=== PATIENT | male | born 2005 ===

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

== ENCOUNTER 2023-03-14 11:10 | Outpatient (REF) | payer BC, SELFPAY ==
[2023-03-14 11:31] LABS: MANUAL DIFF FLAG NO
[2023-03-14 11:59] LABS: Basophils Percent Auto 0.4 % (0-2); Eosinophils Absolute Auto 0.2 X10*3/uL (0.0-0.4); Hematocrit 48.8 % (42.0-52.0); Hemoglobin 16.2 g/dl (14.0-18.0); Imm Gran Abs Auto 0.01 X10*3/uL (0.00-0.03); Imm Gran Pct Auto 0.1 % (0.0-0.4); Lymphocytes Absolute Auto 2.5 X10*3/uL (1.2-4.9); Lymphocytes Percent Auto 36.3 % (20-40); Mean Corpuscular HGB Conc 33.2 g/dl (31.0-36.0); Mean Corpuscular Hemoglobin 28.9 pg (27.0-33.0); Mean Corpuscular Volume 87.1 fL (80.0-98.0); Monocytes Absolute Auto 0.6 X10*3/uL (0.1-1.2); Monocytes Percent Auto 8.7 % (2-11); Neutrophils Absolute Auto 3.5 x10*3/uL (2.0-8.3); Neutrophils Percent Auto 51.5 % (45-73); Platelet Count 347 X10*3/uL (160-400); Red Cell Distribution Width 12.8 % (11.0-16.0); White Blood Count 6.8 X10*3/uL (4.8-10.8)
[2023-03-14 12:03] LABS: Appearance Urine Clear; Color Urine Yellow; Glucose Urine UA Negative (Negative); Leukocyte Esterase Urine Negative (Negative); Nitrite Urine Negative (Negative); PH 5.5 (5.0-9.0); Specific Gravity - Urine 1.025 (1.005-1.025); Urine Blood Negative (Negative); Urine Ketones Negative (Negative); Urine Protein Negative (Neg-Trace)
[2023-03-14 12:24] LABS: Alanine Aminotransferase 79 U/L (0-40); Albumin Level 4.2 g/dL (3.5-5.0); Alkaline Phosphatase 69 U/L (39-117); Anion Gap 13 (12-20); Aspartate Amino Transferase 37 U/L (5-37); Bilirubin Total 0.6 mg/dL (0.0-1.0); Blood Urea Nitrogen 12 mg/dL (9-16); Calcium 9.6 mg/dL (8.4-10.2); Carbon Dioxide 27 mmol/L (22-29); Chloride 105 mmol/L (96-108); Cholesterol 228 mg/dL (<200); Estimated Glomerular Filt Rate > 60; Glucose Fasting 96 mg/dL (60-99); HDL Cholesterol 41 mg/dL (>40); LDL Cholesterol Calculated 166 mg/dL (<100); Potassium 4.4 mmol/L (3.3-5.1); Sodium 141 mmol/L (135-145); Total Protein 7.8 g/dL (6.5-8.0); Triglycerides 105 mg/dL (<150)
== END 2023-03-14 11:11 | disposition home or self-care (01) ==
LOC: HO.LNP 11:10
PROVIDERS: Visit Provider Internal Medicine
DX: Z00.00 Encounter for general adult medical examination without abnormal findings (principal); E66.9 Obesity, unspecified; E78.00 Pure hypercholesterolemia, unspecified
CPT/HCPCS: 80053; 80061; 81003; 85025

== ENCOUNTER 2024-03-18 11:57 | Outpatient (REF) | payer BC, SELFPAY ==
[2024-03-18 12:01] LABS: MANUAL DIFF FLAG NO
[2024-03-18 12:31] LABS: Appearance Urine Clear; Color Urine Yellow; Glucose Urine UA Negative (Negative); Leukocyte Esterase Urine Negative (Negative); Nitrite Urine Negative (Negative); PH 5.5 (5.0-9.0); Urine Blood Negative (Negative); Urine Ketones Negative (Negative); Urine Protein Negative (Neg-Trace)
[2024-03-18 12:33] LABS: Basophils Percent Auto 0.6 % (0-2); Eosinophils Absolute Auto 0.2 X10*3/uL (0.0-0.4); Eosinophils Percent Auto 3.2 % (0-4); Hematocrit 47.4 % (42.0-52.0); Hemoglobin 15.4 g/dl (14.0-18.0); Imm Gran Abs Auto 0.01 X10*3/uL (0.00-0.03); Imm Gran Pct Auto 0.1 % (0.0-0.4); Lymphocytes Absolute Auto 2.9 X10*3/uL (1.2-4.9); Lymphocytes Percent Auto 41.3 % (20-40); Mean Corpuscular HGB Conc 32.5 g/dl (31.0-36.0); Mean Corpuscular Hemoglobin 28.5 pg (27.0-33.0); Mean Corpuscular Volume 87.8 fL (80.0-98.0); Mean Platelet Volume 9.7 fL (9.4-12.4); Monocytes Absolute Auto 0.7 X10*3/uL (0.1-1.2); Monocytes Percent Auto 9.5 % (2-11); Neutrophils Absolute Auto 3.2 x10*3/uL (2.0-8.3); Neutrophils Percent Auto 45.3 % (45-73); Platelet Count 361 X10*3/uL (160-400); Red Cell Distribution Width 12.8 % (11.0-16.0)
[2024-03-18 12:36] LABS: Bacteria Urine None Seen (None Seen); Hyaline Casts Urine 0-2 /LPF (0-2); RBC Urine 0-2 /HPF (0-2); Squamous Epithelial Cell Urine 0-2 /HPF (0-2); WBC Urine 0-5 /HPF (0-5)
[2024-03-18 13:04] LABS: Alanine Aminotransferase 100 U/L (0-40); Alkaline Phosphatase 60 U/L (39-117); Anion Gap 10 (12-20); Aspartate Amino Transferase 39 U/L (5-37); Bilirubin Total 0.6 mg/dL (0.0-1.0); Blood Urea Nitrogen 13 mg/dL (9-16); Calcium 9.2 mg/dL (8.4-10.2); Carbon Dioxide 25 mmol/L (22-29); Chloride 107 mmol/L (96-108); Cholesterol 222 mg/dL (<200); Estimated Glomerular Filt Rate > 60; Glucose Fasting 90 mg/dL (60-99); HDL Cholesterol 40 mg/dL (>40); LDL Cholesterol Calculated 160 mg/dL (<100); Potassium 3.7 mmol/L (3.3-5.1); Sodium 138 mmol/L (135-145); Total Protein 7.1 g/dL (6.5-8.0); Triglycerides 114 mg/dL (<150)
--- OUTSIDE RECORDS SUMMARY | 2024-03-18 13:53 | XMS_ITS ---
Author Organization Rodrigue Rios MD Address [address] [place], [place] [phone] Care Team Providers Care Truck Mechanic Name Role Phone Rodrigue Riso Primary Care Provider ALLERGIES Allergen (clinical drug ingredient) Drug/Non Drug Allergy documented on EMR Reaction Allergy Type Onset Date Status Sudafed rash Drug Allergy Active 12 Hour Nasal [place] Unknown Drug Allergy Active REASON FOR VISIT ANNUAL EXAM, NO Covid symptoms SOCIAL HISTORY Tobacco Use: Social History Observation Description Date Details (start date - stop date) Never Smoker NA - NA Sex Assigned At : Social History Observation Description Sex Assigned At Unknown Tobacco Use/Smoking Question Answer Notes Patient is a nonsmoker Additional Findings: Tobacco Non-User Cu rrent non-smoker, currently using no form of tobacco Alcohol Screen Question Answer Notes Did you have a drink contain ing alcohol in the past year? Yes How often did you have a dri nk containing alcohol in the past year? 2 to 3 times a week (3 points) How many drinks did you have on a typical day when you were drinking in the past year? 1 or 2 drinks (0 point) How often did you have 6 or more drinks on one occasion in the past year? Never (0 point) Points 3 Interpretation Negative VITAL SIGNS BMI 37.36 kg/m2 03/21/2023 BMI Percentile 99.32 % 03/21/2023 Blood pressure systolic 142 mm Hg 03/21/19 24 Blood pressure diastolic 90 mm Hg 024 Height 74 in 03/21/2023 Weight 291 lbs 03/21/2023 Encounters Encounter Location Date Provider Diagnosis Rodrigue Rios MD [address] [place], [place] [phone] 03/21/2023 Rodrigue Rochellecarlos Hypercholesterolemia E78.00 ; Annual physical exam Z00.00 ; Obesity (BMI 35.0-39.9 without comorbidity) E66.9 and Anxiety F41.9 ASSESSMENTS Encounter Date Diagnosis Assessment Notes Treatment Notes Treatment Clinical Notes 03/21/2023 Hypercholesterolemia (ICD-10 - E78.00) needs to get back on diet, will continue to monitor 03/21/2023 Annual physical exam (ICD-10 - Z00.00) labs reviewed and discussed with patient 03/21/2023 Obesity (BMI 35.0-39 .9 without comorbidity) (ICD-10 - E66.9) advised to diet and exercise 03/21/2023 Anxiety (ICD-10 - F41.9) adv ised to go to counselling at school PLAN OF TREATMENT Treatment Notes Assessment Notes Hypercholesterolemia needs to get back o n diet, will continue to monitor Annual physical exam labs reviewed and d iscussed with patient Obesity (BMI 35.0-39.9 without comorbidi ty) advised to diet and exercise Anxiety advised to go to cou nselling at school Next Appt Details Follow Up: 1 Year, Reason: Provider Name:Rodrigue guerrero, 03/25/2024 10:30:00 AM, [address], [address], [place], [place], [phone], Progress Notes * Examination Category Sub-Category Detail Notes General Examination GENERAL APPEARANCE: well dev eloped, well nourished, in no acute distress HEAD: normocephalic, atrau matic EYES: pupils equal, round, reactive to light and accommodation, sclera non- icteric EARS: normal THROAT: clear NECK/THYROID: neck supple, full ra nge of motion, no cervical lymphadenopathy, no bruits HEART: regular rate and rhy thm, S1, S2 normal, no murmurs LUNGS: clear to auscultatio n bilaterally ABDOMEN: soft, nontender, non distended, bowel sounds present, normal, no organomegaly , no masses palpable NEUROLOGIC: nonfocal, motor stre ngth normal upper and lower extremities, sensory exam intact SKIN: warm and dry, no margy picious lesions EXTREMITIES: no clubbing, cyanosi s, or edema MALE GENITOURINARY: declined RECTAL EXAM: not examined ORAL CAVITY: mucosa moist History and Physical Notes * HPI (History of Present Illness) Category Sub-Category Detail Notes Depression Screening PHQ-9 Little inte rest or pleasure in doing things: Not at all Feeling down, depressed, or hopeless: No t at all Trouble falling or staying asleep, or sl eeping too much: Not at all Feeling tired or having little energy: N ot at all Poor appetite or overeating: Not at all Feeling bad about yourself o r that you are a failure, or have let yourself or your family down: Not at all Trouble concentrating on thi ngs, such as reading the newspaper or watching television: Not at all Moving or speaking so slowly that other people could have noticed; or the opposite, being so fidgety or restless that you have been moving around a lot more than usual: Not at all Thoughts that you would be b aron off or of hurting yourself in some way: Not at all Total Score: 0 Interpretation and Intervention Depression Deric kramer Findings: Negative Follow-Up for Depression: : review of PH Q-9 found negative result, no follow-up needed SDOH Questions SDOH Questions In the past year have you been worried about losing housing?: No In the past year have you or any family members you live with been unable to get any of the following when it was really needed? Check all that apply:: None Communication Needs Communication Needs Does the patient have a hearing impairment: No Does the patient have a vision impairmen t?: Yes ?If yes, what is the vision impairment?: Glasses Does the patient have a cognition impair ment?: No
--- OUTSIDE RECORDS SUMMARY | 2024-03-18 13:53 | XMS_ITS | Patient Health Record ---
Author Organization Rodrigue Rios MD Address [address] [place], [place] [phone] Care Team Providers Care Sanitary Landfill Supervisor Name Role Phone Rodrigue Rios Primary Care Provider [phone] ALLERGIES Allergen (clinical drug ingredient) Drug/Non Drug Allergy documented on EMR Reaction Allergy Type Onset Date Status Sudafed rash Drug Allergy Active 12 Hour Nasal [place] Unknown Drug Allergy Active RESULTS Component Value Reference Range Notes Complete Blood Count Auto Di ff (Not yet reviewed by provider) Interpretation: Performing Lab:[facility], [address] [place] [phone] Notes/Report: White Blood Count 7.0 4.8-10.8 X10*3/uL [...] NRBC Abs Auto 0.000 0.0-0.012 X10*3/uL Comprehensive [place]. Panel Fa (Not yet reviewed by provider) Interpretation: Performing Lab:[address] [phone] Notes/Report: Sodium 138 135-145 mmol/L Potassium 3.7 [...] Alkaline Phosphatase 60 39-117 U/L Lipid Panel (Not yet reviewe d by provider) Interpretation: Performing Lab:[address] [phone] Notes/Report: Triglycerides 114 <150 mg/dL Desirable Triglyceride: [...] liver disease. UA ClnCatch+Micro w/rflx Cul t (Not yet reviewed by provider) Interpretation: Performing Lab:[facility], [address] [place] [phone] Notes/Report: Urine, Clean Catch Color Urine Yellow Appearance Urine Clear PH 5.5 5.0-9.0 Glucose Urine UA Negative Negative mg/dL Urine Blood Negative Negative Specific [place] - Urine 1.020 1.005-1.025 Urine Protein Negative Neg-Trace mg/dL Urine Ketones Negative Negative mg/dL Nitrite Urine Negative Negative Leukocyte Esterase Urine Negative Negative RBC Urine 0-2 0-2 /HPF WBC Urine 0-5 0-5 /HPF Squamous Epithelial Cell Urine 0-2 0-2 /HPF Bacteria Urine None Seen None Seen Hyaline Casts Urine 0-2 0-2 /LPF REASON FOR REFERRAL No Information SOCIAL HISTORY Tobacco Use: Social History Observation [...] alcohol in the past year? 2 to 4 times a month (2 points) How many drinks did you have on a typical day when you were drinking in the past year? 1 or 2 drinks (0 point) How often did you have 6 or more drinks on one occasion in the past year? Never (0 point) Points 2 Interpretation Negative PROBLEMS Problem Type ICD Code Onset Dates Problem Status W/U Status Risk SNOMED Code Notes Problem Obesity (BMI 35.0-39 .9 without comorbidity) (E66.9) Active confirmed 778009776 Problem Hypercholesterolemia (E78.00) Active confirmed [id number] Problem Anxiety (F41.9) Active confirmed Anxiet y (80002871) VITAL SIGNS Blood pressure diastolic 90 mm Hg 03/21/2023 Height 74 in 03/21/2023 BMI Percentile 99.32 % 03/21/2023 Blood pressure systolic 142 mm Hg 03/21/2023 Weight 291 lbs 03/21/2023 BMI 37.36 kg/m2 03/21/2023 Encounters Encounter Location Date Provider Diagnosis Rodrigue Rios MD [address] [place], [place] [phone] 03/21/2023 Rodrigue Rios Hypercholesterolemia E78.00 ; Annual physical exam Z00.00 ; Obesity (BMI 35.0-39.9 without comorbidity) E66.9 and Anxiety F41.9 Rodrigue Rios MD [address] [place] [address] Drive [address] [place] [phone] 03/18/2024 Rodrigue Rios Blood tests for rout ine general physical examination Z00.00 and Hypercholesterolemia E78.00 ASSESSMENTS Encounter Date Diagnosis Assessment Notes Treatment Notes Treatment Clinical Notes 03/21/2023 Annual physical exam (ICD-10 - Z00.00) labs reviewed and discussed with patient 03/21/2023 Hypercholesterolemia (ICD-10 - E78.00) needs to get back on diet, will continue to monitor 03/18/2024 Hypercholesterolemia (ICD-10 - E78.00) 03/18/2024 Blood tests for rout ine general physical examination (ICD-10 - Z00.00) 03/21/2023 Obesity (BMI 35.0-39 .9 without comorbidity) (ICD-10 - E66.9) advised to diet and exercise 03/21/2023 Anxiety (ICD-10 - F41.9) adv ised to go to counselling at school PLAN OF TREATMENT Pending Test Test Name Order Date Complete Blood Count Auto Diff 5 Comprehensive [place]. Panel Fast 5 Lipid Panel 03/18/2024 UA ClnCatch+Micro w/rflx Cult 03/18/2024 Next Appt Details Provider Name:Rodrigue guerrero, 03/25/2024 10:30:00 AM, [address] [place] [address] Drive, [address], [place], [place], [phone], Insurance Providers Payer Name Payer Address Payer Phone Subscriber Number Group Number Insured Name Patient Relationship to Insured Coverage Start Date Coverage End Date [employer] [facility] [address] [place], [place] [id number] David Cruz Self - patient is the insured
--- OUTSIDE RECORDS SUMMARY | 2024-03-18 13:53 | XMS_ITS ---
Author Organization Rodrigue Rios MD Address [address] [place], [place] [phone] Care Team Providers Care Plastic Press Molder Name Role Phone Rodrigue Rios Primary Care Provider RESULTS Component Value Reference Range Notes Complete Blood Count Auto Di ff Reviewed date:03/14/2023 04:19:11 PM Interpretation: Performing Lab:[facility] [facility], [address] [place] [phone] Notes/Report: White Blood Count 6.8 4.8-10.8 X10*3/uL Red Blood Count 5.60 4.60-5.80 X10*6/uL Hemoglobin 16.2 14.0-18.0 g/dl Hematocrit 48.8 42.0-52.0 % Mean Corpuscular Volume 87.1 80.0-98.0 fL Mean Corpuscular Hemoglobin 28.9 27.0-33.0 pg Mean Corpuscular HGB Conc 33.2 31.0-36.0 g/dl Red Cell Distribution Width 12.8 11.0-16.0 % Platelet Count 347 160-400 X10*3/uL Mean Platelet Volume 10.0 9.4-12.4 fL Neutrophils Percent Auto 51.5 45-73 % Imm Gran Pct Auto 0.1 0.0-0.4 % Lymphocytes Percent Auto 36.3 20-40 % Monocytes Percent Auto 8.7 2-11 % Eosinophils Percent Auto 3.0 0-4 % Basophils Percent Auto 0.4 0-2 % NRBC Pct Auto 0.0 0.0-0.2 /100WBC Neutrophils Absolute Auto 3.5 2.0-8.3 x10*3/u L Imm Gran Abs Auto 0.01 0.00-0.03 X10*3/uL Lymphocytes Absolute Auto 2.5 1.2-4.9 X10*3/u L Monocytes Absolute Auto 0.6 0.1-1.2 X10*3/uL Eosinophils Absolute Auto 0.2 0.0-0.4 X10*3/u L Basophils Absolute Auto 0.0 0.0-0.2 X10*3/uL NRBC Abs Auto 0.000 0.0-0.012 X10*3/uL Comprehensive [place]. Panel Fa st Reviewed date:03/14/2023 04:18:06 PM Interpretation: Performing Lab:[address] [phone] Notes/Report: Sodium 141 135-145 mmol/L Potassium 4.4 3.3-5.1 mmol/L Chloride 105 96-108 mmol/L Carbon Dioxide 27 22-29 mmol/L Anion Gap 13 12-20 Blood Urea Nitrogen 12 9-16 mg/dL Creatinine 0.87 0.5-1.4 mg/dL Estimated Glomerular Filt Rate > 60 NOTE: For -[place]eb[place] individuals, multiply the result by 1.210. Chronic Kidney Disease: Estimated GFR < 60 mL/min/1.73m2 Severe Kidney Disease: Estimated GFR < 15 mL/min/1.73m2 Glucose Fasting 96 60-99 mg/dL Calcium 9.6 8.4-10.2 mg/dL Bilirubin Total 0.6 0.0-1.0 mg/dL Aspartate Amino Transferase 37 5-37 U/L Alanine Aminotransferase 79 0-40 U/L Total Protein 7.8 6.5-8.0 g/dL Albumin Level 4.2 3.5-5.0 g/dL Alkaline Phosphatase 69 39-117 U/L Lipid Panel Reviewed date:03/14/2023 02:49:48 PM Interpretation: Performing Lab:[facility], [address] [place] [phone] Notes/Report: Triglycerides 105 <150 mg/dL Desirable Triglyceride: less than 90 mg/dL Borderline High Triglyceride: 90-129 mg/dL High Triglyceride: greater than 130 mg/dL Cholesterol 228 <200 mg/dL Desirable Cholesterol: less than 170 mg/dL Borderline High Cholesterol: 170-199 mg/dL High Cholesterol: greater than 200 mg/dL LDL Cholesterol Calculated 166 <100 mg/dL Desirable LDL: less than 110 mg/dL Borderline LDL: 110-129 mg/dL High LDL: greater than or equal to 130 mg/dL HDL Cholesterol 41 >40 mg/dL Desirable HDL: greater than 45 mg/dL Borderline HDL: 40-45 mg/dL Low HDL: less than 40 mg/dL Note: This HDL assay may give artificially low results in patients with liver disease. REASON FOR VISIT ANNUAL FASTING LABWORK Encounters Encounter Location Date Provider Diagnosis Rodrigue Rios MD [address] [place], [place] [phone] 03/14/2023 Rodrigue Rios Blood tests for rout ine general physical examination Z00.00 ; Hypercholesterolemia E78.00 and Obesity (BMI 35.0-39.9 without comorbidity) E66.9 ASSESSMENTS Encounter Date Diagnosis Assessment Notes Treatment Notes Treatment Clinical Notes 03/14/2023 Blood tests for rout ine general physical examination (ICD-10 - Z00.00) 03/14/2023 Hypercholesterolemia (ICD-10 - E78.00) 03/14/2023 Obesity (BMI 35.0-39 .9 without comorbidity) (ICD-10 - E66.9) PLAN OF TREATMENT Next Appt Details Provider Name:Rodrigue guerrero, 03/25/2024 10:30:00 AM, [address] [place] [address], [address], [place], [place], [phone],
== END 2024-03-18 11:58 | disposition home or self-care (01) ==
LOC: HO.LNP 11:57
PROVIDERS: Visit Provider Internal Medicine
DX: Z00.00 Encounter for general adult medical examination without abnormal findings (principal); E78.00 Pure hypercholesterolemia, unspecified
CPT/HCPCS: 80053; 80061; 81001; 85025

== ENCOUNTER 2024-11-01 10:43 | Outpatient (REF) | payer BC, SELFPAY ==
--- OUTSIDE RECORDS SUMMARY | 2024-03-18 03:45 | XMS_ITS ---
Author Organization Rodrigue Rios MD Address [address] [place], [place] [id number] Care Team Providers Care Power Shovel Operator Helper Name Role Phone Rodrigue Rios Primary Care Provider [phone] Results Component Value Reference Range Notes Complete Blood Count Auto Di ff Reviewed date:03/18/2024 06:01:01 PM Interpretation: Performing Lab:[facility], [address] [place] [phone] Notes/Report: White Blood Count 7.0 4.8-10.8 X10*3/uL Red Blood Count 5.40 4.60-5.80 X10*6/uL Hemoglobin 15.4 14.0-18.0 g/dl Hematocrit 47.4 42.0-52.0 % Mean Corpuscular Volume 87.8 80.0-98.0 fL Mean Corpuscular Hemoglobin 28.5 27.0-33.0 pg Mean Corpuscular HGB Conc 32.5 31.0-36.0 g/dl Red Cell Distribution Width 12.8 11.0-16.0 % Platelet Count 361 160-400 X10*3/uL Mean Platelet Volume 9.7 9.4-12.4 fL Neutrophils Percent Auto 45.3 45-73 % Imm Gran Pct Auto 0.1 0.0-0.4 % Lymphocytes Percent Auto 41.3 20-40 % Monocytes Percent Auto 9.5 2-11 % Eosinophils Percent Auto 3.2 0-4 % Basophils Percent Auto 0.6 0-2 % NRBC Pct Auto 0.0 0.0-0.2 /100WBC Neutrophils Absolute Auto 3.2 2.0-8.3 x10*3/u L Imm Gran Abs Auto 0.01 0.00-0.03 X10*3/uL Lymphocytes Absolute Auto 2.9 1.2-4.9 X10*3/u L Monocytes Absolute Auto 0.7 0.1-1.2 X10*3/uL Eosinophils Absolute Auto 0.2 0.0-0.4 X10*3/u L Basophils Absolute Auto 0.0 0.0-0.2 X10*3/uL NRBC Abs Auto 0.000 0.0-0.012 X10*3/uL Comprehensive [place]. Panel Fa st Reviewed date:03/25/2024 12:51:38 PM Interpretation:DANIELA 03/25 Performing Lab:[address] [phone] Notes/Report: Sodium 138 135-145 mmol/L Potassium 3.7 3.3-5.1 mmol/L Chloride 107 96-108 mmol/L Carbon Dioxide 25 22-29 mmol/L Anion Gap 10 12-20 Blood Urea Nitrogen 13 9-16 mg/dL Creatinine 0.87 0.5-1.4 mg/dL Estimated Glomerular Filt Rate > 60 Chronic Kidney Disease: Estimated GFR < 60 mL/min/1.73m2 Severe Kidney Disease: Estimated GFR < 15 mL/min/1.73m2 Glucose Fasting 90 60-99 mg/dL Calcium 9.2 8.4-10.2 mg/dL Bilirubin Total 0.6 0.0-1.0 mg/dL Aspartate Amino Transferase 39 5-37 U/L Alanine Aminotransferase 100 0-40 U/L Total Protein 7.1 6.5-8.0 g/dL Albumin Level 4.0 3.5-5.0 g/dL Alkaline Phosphatase 60 39-117 U/L Lipid Panel Reviewed date:03/18/2024 05:45:59 PM Interpretation: Performing Lab:[address] [phone] Notes/Report: Triglycerides 114 <150 mg/dL Desirable Triglyceride: less than 150 mg/dL Borderline High Triglyceride 150-199 mg/dL High Triglyceride: 200-499 mg/dL Very High Triglyceride: greater than or equal to 5OO mg/dL Cholesterol 222 <200 mg/dL Desirable Cholesterol: less than 200 mg/dL Borderline High Cholesterol: 200-239 mg/dL High Cholesterol: greater than 239 mg/dL LDL Cholesterol Calculated 160 <100 mg/dL Desirable LDL: less than 100 mg/dL Near Optimal/Above Optimal LDL: 110-129 mg/dL Borderline High LDL: 130-159 mg/dL High LDL: 160-189 mg/dL Very High LDL: greater than or equal to 190 mg/dL HDL Cholesterol 40 >40 mg/dL Desirable HDL: greater than 40 mg/dL Note: This HDL assay may give artificially low results in patients with liver disease. UA ClnCatch+Micro w/rflx Cul t Reviewed date:03/18/2024 06:02:01 PM Interpretation: Performing Lab:[facility], [address] [place] [phone] Notes/Report: Urine, Clean Catch Color Urine Yellow Appearance Urine Clear PH 5.5 5.0-9.0 Glucose Urine UA Negative Negative mg/dL Urine Blood Negative Negative Specific [place] - Urine 1.020 1.005-1.025 Urine Protein Negative Neg-Trace mg/dL Urine Ketones Negative Negative mg/dL Nitrite Urine Negative Negative Leukocyte Esterase Urine Negative Negative RBC Urine 0-2 0-2 /HPF WBC Urine 0-5 0-5 /HPF Squamous Epithelial Cell Urine 0-2 0-2 /HPF Bacteria Urine None Seen None Seen Hyaline Casts Urine 0-2 0-2 /LPF REASON FOR VISIT yearly fasting labs Encounters Encounter Location Date Provider Diagnosis Rodrigue Rios MD [address] [facility] [address] [place] [phone] 03/18/2024 Rodrigue Rios Blood tests for rout ine general physical examination Z00.00 and Hypercholesterolemia E78.00 Assessments Encounter Date Diagnosis (ICD Code) Assessment Notes Treatment Notes Treatment Clinical Notes Section Notes 03/18/2024 Blood tests for rout ine general physical examination (ICD-10 - Z00.00) 03/18/2024 Hypercholesterolemia (ICD-10 - E78.00) Plan Of Treatment Next Appt Details Provider Name:Rodrigue guerrero, 11/04/2024 10:15:00 AM, [address] [facility], [address], [place], [place], [phone], Provider Name:Rodrigue guerrero, 03/25/2025 07:00:00 AM, [address], [address], [place], [place], [phone], Provider Name:Rodrigue Garvey ier, 04/01/2025 09:30:00 AM, [address], [address], [place], [place], [phone], Progress Notes * David CRUZDOB:2005 (18 yo M)Acc No.[id number]:03/18/2024 Progress Note Patient: David COX Provider: Tru Rios MD :2005 A ge:18 Y S ex:Male Date:03/18/2024 [facility] Subjective: * Chief Complaints: * 1 . Yearly fasting labs. * Medical History: Objective: * Vitals: Assessment: * Assessment: 1. B lood tests for routine general physical examination - Z00.00 (Primary) 2 .?Hypercholesterolemia - E78.00 Plan: * Treatment: 2. H ypercholesterolemia L AB: Complete Blood Count Auto Diff (Collection Date & Time - 03/18/2024 07:45 AM) L AB: Comprehensive [place]. Panel Fast (Collection Date & Time - 03/18/2024 07:45 AM) L AB: Lipid Panel (Collection Date & Time - 03/18/2024 07:45 AM) L AB: UA ClnCatch+Micro w/rflx Cult (Collection Date & Time - 03/18/2024 07:45 AM) * Procedure Codes: 3 6415 VENIPUNCT, ROUTINE* * * The named appointment provid er may or may not be the originator of this progress note, and it is not deemed complete until electronically signed by the appointment provider. Sign off status: Pending * Provider: Tru Rios MD Date: 0 03/18/2024 Generated for Samantha alvares/Monica/Moizitting on: 0 11/01/2024 10:45 AM EDT
--- OUTSIDE RECORDS SUMMARY | 2024-11-01 10:45 | XMS_ITS ---
Author Name [facility] Organization Unknown Care Team Organization Name Specialty Phone Email Start Date End Da te [facility] Termed, PROVIDER Primary Care 01/18/202210/11
[2024-11-01 11:36] LABS: Alanine Aminotransferase 61 U/L (0-40); Albumin Level 4.3 g/dL (3.5-5.0); Alkaline Phosphatase 65 U/L (39-117); Aspartate Amino Transferase 32 U/L (5-37); Cholesterol 223 mg/dL (<200); HDL Cholesterol 40 mg/dL (>40); Total Protein 7.3 g/dL (6.5-8.0); Triglycerides 119 mg/dL (<150)
== END 2024-11-01 10:44 | disposition home or self-care (01) ==
LOC: HO.LNP 10:43
PROVIDERS: Visit Provider Internal Medicine
DX: Z13.6 Encounter for screening for cardiovascular disorders (principal); R63.5 Abnormal weight gain
CPT/HCPCS: 80061; 80076